=== PATIENT | female | born 1965 | race Caucasian/White ===

== ENCOUNTER → 2018-03-10 | Outpatient (CLI) | payer OTHER | END | disposition home or self-care (01) | LOC: HKI 09:16 | DX: M16.11 Unilateral primary osteoarthritis, right hip (principal) | CPT/HCPCS: 73502 ==

== ENCOUNTER 2018-05-21 07:32 | Inpatient (IN) | payer OTHER ==
[2018-05-21] MEDS: DEXAMETHASONE 4 MG/ML 1 ML INJ IV (06:00)
[2018-05-21] MEDS: LACTATED RINGER'S 1,000 ML IV* (06:00)
[~2018-05-21 07:32] MED LIST: BUPIVACAINE 0.75%/DEXT (SPINAL) 2 ML INJ; CEFAZOLIN 1 GM INJ; EPHEDrine SULFATE 50 MG/5 ML SYG; PROPOFOL 200 MG INJ
[2018-05-21] MEDS ORDERED: NALOXONE (0.4 MG/ML) INJ IV (10:30)
[2018-05-21] MEDS ORDERED: NACL 0.9% 3 ML SYG IV (10:30)
[2018-05-21] MEDS ORDERED: BISACODYL 10 MG SUPP PR (10:30)
[2018-05-21] MEDS ORDERED: SENNA/DOCUSATE NA (8.6MG/50MG) TAB PO (10:30)
[2018-05-21] MEDS ORDERED: MAGNESIUM HYDROXIDE 30ML CUP PO (10:30)
[2018-05-21] MEDS ORDERED: NA PHOSPHATE/BIPHOS 133 ML ENEMA PR (10:30)
[2018-05-21] MEDS ORDERED: BETHANECHOL 25 MG TAB PO (10:30)
[2018-05-21] MEDS ORDERED: oxyCODONE 5 MG TAB PO (10:30)
[2018-05-21] MEDS ORDERED: MIDAZOLAM 1 MG/ML 2 ML INJ (10:35)
[2018-05-21] MEDS ORDERED: FENTAnyl 50 MCG/ML VIAL (10:35)
[2018-05-21] MEDS: CEFAZOLIN 2 GM/50 ML (PMX) 50 ML IVPB (10:48)
[2018-05-21] MEDS: TRANEXAMIC ACID 1,000 MG in NS 100 ML PRE-OP X1 IVPB (10:48)
[2018-05-21] MEDS ORDERED: PHENYLephrine (100 MCG/ML) 5ML SYG (11:15)
[2018-05-21] MEDS ORDERED: PHENYLephrine 10 MG INJ ×2 (11:16→11:44)
[2018-05-21] MEDS: POLYMYXIN B 500000 UNIT INJ (12:08)
[2018-05-21] MEDS: BACITRACIN 50000 UNITS INJ IRR (12:08)
[2018-05-21] MEDS: TRANEXAMIC ACID 1,000 MG in NS 100 ML INTRA-OP X1 IVPB (12:23)
[2018-05-21] MEDS ORDERED: ROPIVACAINE 0.2% 20 ML VIAL (13:14)
[2018-05-21] MEDS ORDERED: DEXAMETHASONE 4 MG/ML 1 ML INJ (13:14)
[2018-05-21] MEDS ORDERED: LIDOCAINE 2% (SDV) 5 ML INJ (13:15)
[2018-05-21] MEDS ORDERED: BACITRACIN 50000 UNITS INJ (13:36)
[2018-05-21] MEDS ORDERED: HYDROmorphONE 1 MG/5 ML IV SYRINGE IV ×2 (14:00)
[2018-05-21] MEDS: CEFAZOLIN 1 GM/50 ML (PMX) 50 ML IVPB ×2 (14:45→21:19)
[2018-05-21] MEDS: ONDANSETRON 4 MG INJ IV ×3 (14:46→23:30)
[2018-05-21] MEDS: DOCUSATE SODIUM 100 MG CAP PO (14:47)
[2018-05-21] MEDS: ASPIRIN (EC) 325 MG TAB PO ×2 (14:48→21:19)
[2018-05-21] MEDS ORDERED: HIP PAIN COCKTAIL (CEFUROXIME) INJ (15:00)
[2018-05-21] MEDS: SOD CHLORIDE 0.9% 1,000 ML IV ×2 (16:00→22:42)
[2018-05-21] MEDS: oxyCODONE 5 MG TAB PO (19:56)
[2018-05-21] MEDS: GABAPENTIN 100 MG CAP PO (21:19)
[2018-05-22] MEDS: ONDANSETRON 4 MG INJ IV (05:30)
[2018-05-22] MEDS: CEFAZOLIN 1 GM/50 ML (PMX) 50 ML IVPB (05:35)
[2018-05-22] MEDS: PANTOPRAZOLE (EC) 40 MG TAB PO (05:35)
[2018-05-22 05:43] LABS: ADD MAN DIFF? NO
[2018-05-22 05:46] LABS: WHITE BLOOD COUNT 10.7 10^3/ul (4.8-10.8)
[2018-05-22 05:46] LABS: BASOPHILS % 0.1 % (0.0-2.0); HEMATOCRIT 28.8 % (37.0-47.0); HEMOGLOBIN 9.5 g/dl (12.0-16.0); LYMPHOCYTES # 0.9 10^3/ul (0.8-2.9); LYMPHOCYTES % 8.8 % (15.0-51.0); MEAN CORPUSCULAR VOLUME 90.9 fl (82.0-101.0); MEAN PLATELET VOLUME 8.8 fl (7.4-10.4); MONOCYTE # 0.9 10^3/ul (0.3-0.9); NEUTROPHIL # 8.9 10^3/ul (1.6-7.5); NEUTROPHILS % 82.7 % (39.0-77.0); PLATELET COUNT 241 10^3/UL (140-415); RED BLOOD COUNT 3.17 10^6/ul (4.20-5.40); RED CELL DISTRIBUTION WIDTH 11.9 % (11.5-14.5)
[2018-05-22 06:00] LABS: ALANINE AMINOTRANSFERASE 31 IU/L (13-69); ALBUMIN/GLOBULIN RATIO 1.03; ALKALINE PHOSPHATASE 67 IU/L (42-121); ANION GAP 13 (8-16); ASPARTATE AMINO TRANSFERASE 38 IU/L (15-46); BILIRUBIN,INDIRECT 0.5 mg/dl (0-1.1); BILIRUBIN,TOTAL 0.5 mg/dl (0.2-1.3); BLOOD UREA NITROGEN 17 mg/dl (7-20); CALCIUM 8.8 mg/dl (8.4-10.2); CARBON DIOXIDE 24 mmol/L (21-31); CHLORIDE 110 mmol/L (97-110); CHOLESTEROL 144 mg/dl (100-200); CREATININE 0.58 mg/dl (0.44-1.00); GLUCOSE 144 mg/dl (70-220); HDL CHOLESTEROL 36 mg/dl (37-92); LDL CHOLESTEROL,CALCULATED 89 mg/dl; MAGNESIUM 1.9 mg/dl (1.7-2.5); PHOSPHORUS 3.6 mg/dl (2.5-4.9); SODIUM 143 mmol/L (135-144); TOTAL PROTEIN 5.9 g/dl (6.1-8.1); TRIGLYCERIDES 94 mg/dl (0-149)
[2018-05-22 06:15] LABS: FREE THYROXINE INDEX (Calc) 2.25 ug/ml (0.65-3.89); T3 UPTAKE 33.6 % (23.5-40.5); T4 (THYROXINE) 6.7 ug/dl (5.5-11.0)
[2018-05-22 06:29] LABS: THYROID STIMULATING HORMONE 0.206 MIU/L (0.465-4.680)
[2018-05-22 08:12] LABS: HEMOGLOBIN A1C 5.8 % (0-5.9)
[2018-05-22] MEDS: FERROUS FUMARATE (SR) TAB PO ×2 (08:26→22:07)
[2018-05-22] MEDS: ASPIRIN (EC) 325 MG TAB PO ×2 (08:26→22:07)
[2018-05-22] MEDS: GABAPENTIN 100 MG CAP PO ×2 (08:26→22:07)
[2018-05-22] MEDS: DOCUSATE SODIUM 100 MG CAP PO ×2 (08:26→22:07)
[2018-05-22] MEDS: CELECOXIB 200 MG CAP PO ×2 (08:26→22:08)
[2018-05-22] MEDS: oxyCODONE 5 MG TAB PO (10:56)
[2018-05-22] MEDS: SOD CHLORIDE 0.9% 1,000 ML IV ×2 (11:00→22:08)
[2018-05-22] MEDS: DIPHENHYDRAMINE 50 MG INJ IV (19:16)
[2018-05-23 05:05] LABS: ADD MAN DIFF? NO
[2018-05-23] MEDS: PANTOPRAZOLE (EC) 40 MG TAB PO (05:33)
[2018-05-23 05:49] LABS: ANION GAP 12 (8-16); BLOOD UREA NITROGEN 20 mg/dl (7-20); CALCIUM 7.5 mg/dl (8.4-10.2); CARBON DIOXIDE 23 mmol/L (21-31); CHLORIDE 112 mmol/L (97-110); CREATININE 0.56 mg/dl (0.44-1.00); GLUCOSE 96 mg/dl (70-220); POTASSIUM 4.6 mmol/L (3.5-5.1); SODIUM 142 mmol/L (135-144)
[2018-05-23] MEDS: ONDANSETRON 4 MG INJ IV (05:59)
[2018-05-23 07:20] LABS: WHITE BLOOD COUNT 10.4 10^3/ul (4.8-10.8)
[2018-05-23 07:20] LABS: BASOPHILS % 0.2 % (0.0-2.0); EOSINOPHILS # 0.2 10^3/ul (0.0-0.5); EOSINOPHILS % 1.9 % (0.0-7.0); HEMATOCRIT 30.3 % (37.0-47.0); HEMOGLOBIN 9.9 g/dl (12.0-16.0); LYMPHOCYTES # 2.6 10^3/ul (0.8-2.9); MEAN CORPUSCULAR HEMOGLOBIN 30.4 pg (29.0-33.0); MEAN CORPUSCULAR HGB CONC 32.7 g/dl (32.0-37.0); MEAN CORPUSCULAR VOLUME 92.9 fl (82.0-101.0); MEAN PLATELET VOLUME 9.4 fl (7.4-10.4); MONOCYTE # 0.9 10^3/ul (0.3-0.9); MONOCYTES % 8.5 % (0.0-11.0); NEUTROPHIL # 6.7 10^3/ul (1.6-7.5); NEUTROPHILS % 63.9 % (39.0-77.0); PLATELET COUNT 223 10^3/UL (140-415); RED BLOOD COUNT 3.26 10^6/ul (4.20-5.40); RED CELL DISTRIBUTION WIDTH 12.3 % (11.5-14.5)
[2018-05-23] MEDS: DOCUSATE SODIUM 100 MG CAP PO (08:36)
[2018-05-23] MEDS: GABAPENTIN 100 MG CAP PO (08:36)
[2018-05-23] MEDS: CELECOXIB 200 MG CAP PO (08:36)
[2018-05-23] MEDS: FERROUS FUMARATE (SR) TAB PO (08:36)
[2018-05-23] MEDS: ASPIRIN (EC) 325 MG TAB PO (08:36)
[2018-05-23] MEDS: DIPHENHYDRAMINE 50 MG INJ IV (11:31)
[2018-05-23] MEDS: SOD CHLORIDE 0.9% 1,000 ML IV (12:12)
[2018-05-23] MEDS: oxyCODONE 5 MG TAB PO (18:20)
== END 2018-05-23 19:25 | disposition home health service (06) | DRG 470 ==
LOC: REC 07:32 → MS1 15:30
PROC: 0SR903Z Replacement of Right Hip Joint with Ceramic Synthetic Substitute, Open Approach (ICD-10-PCS; principal; 2018-05-21 10:48)
DX: M16.11 Unilateral primary osteoarthritis, right hip (principal); E66.9 Obesity, unspecified; Z68.31 Body mass index [BMI] 31.0-31.9, adult; I10 Essential (primary) hypertension; L50.9 Urticaria, unspecified
CPT/HCPCS: 72170; 73500; 73530; 80048; 80053; 80061; 83036; 83735; 84100; 84436; 84443; 84479; 85025; 86850; 86900; 86901; 88304; 97110; 97116; 97163; 97166; 97530

== ENCOUNTER → 2018-06-02 | Outpatient (CLI) | payer OTHER | END | disposition home or self-care (01) | LOC: HKI 10:23 | DX: Z09 Encounter for follow-up examination after completed treatment for conditions other than malignant neoplasm (principal); Z96.641 Presence of right artificial hip joint | CPT/HCPCS: 73502 ==

== ENCOUNTER → 2018-06-09 | Outpatient (CLI) | payer OTHER | END | disposition home or self-care (01) | LOC: HKI 10:29 | DX: Z09 Encounter for follow-up examination after completed treatment for conditions other than malignant neoplasm (principal); Z96.641 Presence of right artificial hip joint ==

== ENCOUNTER → 2018-06-27 | Outpatient (CLI) | payer OTHER | END | disposition home or self-care (01) | LOC: HKI 10:09 | DX: Z09 Encounter for follow-up examination after completed treatment for conditions other than malignant neoplasm (principal); M25.551 Pain in right hip; Z96.641 Presence of right artificial hip joint | CPT/HCPCS: 73502 ==

== ENCOUNTER → 2018-07-31 | Outpatient (CLI) | payer OTHER | END | disposition home or self-care (01) | LOC: HKI 09:19 | DX: M25.551 Pain in right hip (principal); M54.5 Low back pain; Z96.641 Presence of right artificial hip joint | CPT/HCPCS: 73502 ==